=== PATIENT | female | born 1990 | race American Indian/Alaskan Native ===

== ENCOUNTER 2017-04-06 16:28 | Outpatient (CLI) | payer MEDICAID ==
[2017-04-06] MEDS ORDERED: LACTATED RINGERS 500 ML IV ONE (16:38)
[2017-04-06] MEDS ORDERED: LACTATED RINGERS 1,000 ML IV SCH (17:00)
[2017-04-06 17:05] VITALS: BP 118/64
[2017-04-06 17:13] LABS: Bilirubin,Urine NEG (Negative); Blood,Urine NEG (Negative); Ketones,Urine NEG (Negative); Leukocyte Esterase,Urine NEG (Negative); Mucus,Urine FEW /HPF; Nitrite,Urine NEG (Negative); Protein,Urine <15 mg/dL mg/dL (Negative); Urobilinogen,Urine < 2.0 mg/dL (<2.0)
[2017-04-06] MEDS ORDERED: IMODIUM PO PRN (17:30)
== END 2017-04-06 17:35 | disposition home or self-care (01) ==
LOC: TRG 16:28
PROVIDERS: ATTEND Obstetrics & Gynecology
DX: O47.02 False labor before 37 completed weeks of gestation, second trimester (principal); Z3A.25 25 weeks gestation of pregnancy
CPT/HCPCS: 59025; 81001

== ENCOUNTER 2017-06-05 12:57 | Outpatient (CLI) | payer MEDICAID ==
[2017-06-05] MEDS ORDERED: LACTATED RINGERS 500 ML IV ONE (13:19)
[2017-06-05 13:31] VITALS: BP 118/68
[2017-06-05 14:49] LABS: Basophils % (Auto) 0.4 % (0.0-1.8); Eosinophils % (Auto) 0.9 % (0.0-4.3); Hematocrit 30.6 % (30.3-42.9); Hemoglobin 10.3 gm/dl (10.1-14.3); Mean Corpuscular HGB Conc 34 % (30-34); Mean Corpuscular Hemoglobin 28 pg (28-32); Mean Corpuscular Volume 83 fl (79-97); Platelet Count 264 K/mm3 (140-440); Red Blood Count 3.69 M/mm3 (3.65-5.03); Red Cell Distribution Width 15.7 % (13.2-15.2); White Blood Count 8.1 K/mm3 (4.5-11.0)
[2017-06-05 15:06] LABS: Alanine Aminotransferase 8 units/L (7-56); Albumin 3.4 g/dL (3.9-5); Albumin/Globulin Ratio 1.1 %; Alkaline Phosphatase 94 units/L (35-129); Anion Gap 21 mmol/L; BUN/Creatinine Ratio 15; Blood Urea Nitrogen 6 mg/dL (7-17); Carbon Dioxide 19 mmol/L (22-30); Chloride 96.8 mmol/L (98-107); Glucose 133 mg/dL (65-100); Potassium 3.5 mmol/L (3.6-5.0); Sodium 133 mmol/L (137-145); Total Protein 6.4 g/dL (6.3-8.2)
[2017-06-05] MEDS ORDERED: LACTATED RINGERS 1,000 ML ONE (15:49)
[2017-06-05 17:30] LABS: Bilirubin,Urine NEG (Negative); Blood,Urine NEG (Negative); Ketones,Urine 80 mg/dL (Negative); Leukocyte Esterase,Urine NEG (Negative); Mucus,Urine 3+ /HPF; Nitrite,Urine NEG (Negative)
== END 2017-06-05 17:50 | disposition home or self-care (01) ==
LOC: TRG 12:57
PROVIDERS: ATTEND Obstetrics & Gynecology
DX: Z34.93 Encounter for supervision of normal pregnancy, unspecified, third trimester (principal); Z3A.34 34 weeks gestation of pregnancy; Z79.899 Other long term (current) drug therapy
CPT/HCPCS: 36415; 59025; 80053; 81001; 82962; 83036; 85025; 96360; 96361; J7120

== ENCOUNTER 2017-07-04 08:23 | Inpatient (IN) | payer MEDICAID ==
--- NOTE | 2017-07-04 10:12 | History and Physical Report ---
History of Present Illness Date of examination: 07/04/17 Date of admission: 07/04/17 08:23 Chief complaint: induction of labor @ 38+4 weeks for GDM History of present illness: EDC Calculations by LMP: 07/14/2017 Past History : 3 Term Births: 2 Living Children: 2 Para: 2 # 1 Delivery date: 2006 Weeks Gestation: 42 labor: no Delivery type: Anesthesia type: epidural Delivery location: [place] Sex: Male weight: 8#2 Comments: no complications # 2 Delivery date: 2007 Weeks Gestation: 42 labor: no Delivery type: Anesthesia type: epidural Delivery location: [place] Sex: Male weight: 8#10 Past Medical History: Abnormal Pap Smear "all of them have had abnormal cells" - last pap 2014 Past Surgical History: right ankle Past Medical History Surgery (Non-brand planner): right ankle Abnormal PAP: positive Family Hx: Aunt - ovarian cancer Social Hx: single no etoh/drugs/smoking Infection History Hx of STD: HPV HIV Risk Eval: no Hepatitis B Risk Eval: low risk Personal hx. of genital herpes: no Partner hx. of genital herpes: no Rash, Viral, or Febrile illness since last LMP? no Genetic History Congenital Heart Defect: Mom: no Dad: no Shefali Disease: Mom: no Dad: no Thalassemia Mom: no Dad: no Neural Tube Defect Mom: no Dad: no Down's Syndrome Mom: no Dad: no Lg-Sachs Mom: no Dad: no Sickle Cell Disease/Trait Mom: no Dad: no Hemophilia Mom: no Dad: no Muscular Dystrophy Mom: no Dad: no Cystic Fibrosis Mom: no Dad: no [place] Chorea Mom: no Dad: no Mental Retardation Mom: no Dad: no Fragile X Mom: no Dad: no Other Genetic/Chromosomal Disorder Mom: no Dad: no Child w/other defect Mom: no Dad: no Enviromental Exposures Xray Exposure: no Medication, drug, or alcohol use since LMP: no Chemical/Other Exposure: no Exposure to Cat Liter: no Hx of Parvovirus (Fifth Disease): no Occupational Exposure to Children: none Active Medications (reviewed today): None Current Allergies (reviewed today): No known allergies Past History Past Medical History: other (see HPI) Past Surgical History: other (see HPI) - Obstetrical History Expected Date of Delivery: 07/14/17 Actual Gestation: 38 Week(s) 4 Day(s) : 3 Para: 2 Hx # Term Pregnancies: 2 Number of Pregnancies: 0 Spontaneous Abortions: 0 Induced : 0 Number of Living Children: 2 Medications and Allergies Allergies Allergy/AdvReac Type Severity Reaction Status Date / Time No Known Allergies Allergy Unverified 04/06/17 16:38 Home Medications Medication Instructions Recorded Confirmed Last Taken Type Vit No.129/Iron/Folic 1 each PO DAILY 06/05/17 06/05/17 3 Days Ago History [ Tablet] ~06/02/17 Active Meds: Active Medications Ephedrine Sulfate (Ephedrine Sulfate) 10 mg IV Q2M PRN PRN Reason: Hypotension Fentanyl (Sublimaze) 100 mcg IV Q2H PRN PRN Reason: Labor Pain Ampicillin Sodium (Polycillin/Ns 2 Gm/100 Ml) 2 gm in 100 mls @ 100 mls/hr IV ONCE ONE PRN Reason: Protocol Stop: 07/04/17 11:03 Ampicillin Sodium (Polycillin/Ns 1 Gm/50 Ml) 1 gm in 50 mls @ 100 mls/hr IV Q4HR DHIRAJ PRN Reason: Protocol Lactated Ringer's (Lactated Ringers) 1,000 mls @ 125 mls/hr IV DIRECT DHIRAJ Oxytocin/Sodium Chloride (Pitocin/Ns 20 Unit/1000ml Drip) 20 units in 1,000 mls @ 125 mls/hr IV DIRECT DHIRAJ Oxytocin/Sodium Chloride (Pitocin/Ns 30 Unit/500ml) 30 units in 500 mls @ 4 mls /hr IV TITR DHIRAJ PRN Reason: Protocol Lidocaine (Xylocaine 2%) 20 ml INFILTRATI ONCE ONE Stop: 07/04/17 10:05 Mineral Oil (Mineral Oil) 30 ml PO QHS PRN PRN Reason: Constipation Ondansetron HCl (Zofran) 4 mg IV Q8H PRN PRN Reason: Nausea And Vomiting Terbutaline Sulfate (Brethine) 0.25 mg SUB-Q ONCE PRN PRN Reason: Hyperstimulation/Hypertonicity Review of Systems All systems: negative - Vital Signs Vital signs: Vital Signs Temp Pulse Resp BP 98.2 F 100 H 18 118/71 07/04/17 08:54 07/04/17 08:54 07/04/17 08:54 07/04/17 08:54 Temp Pulse Resp BP Pulse Ox 98.2 F 100 H 18 118/71 07/04/17 08:54 07/04/17 08:57 07/04/17 08:54 07/04/17 08:57 - Physical Exam Breasts: Positive: normal Cardiovascular: Regular rate Lungs: Positive: Clear to auscultation, Normal air movement Abdomen: Positive: normal appearance, soft Genitourinary (Female): Positive: normal external genitalia, normal perenium Vulva: both: normal Vagina: Positive: normal moisture Uterus: Positive: normal size, normal contour Anus/Rectum: Positive: normal perianal skin Extremities: Positive: normal Deep Tendon Reflex Grade: Normal +2 - Obstetrical FHR: category 1 Uterine Contraction Monitor Mode: External Cervical Dilatation: 3.5 (vertex, IBOW) Cervical Effacement Percentage: 70 station: -1 Uterine Contraction Frequency (min): 1.5-3 Uterine Contraction Duration: 60 Uterine Contraction Pattern: Regular Uterine Tone Measurement Phase: Contraction Uterine Contraction Intensity: Moderate Results Result Diagrams: 07/04/17 09:00 All other labs normal. Assessment and Plan Admission to L&D for IOL @ 38+4 for GDM on metformin. Admission orders in EMR. Patient doing well, breathing through ctx. SVE changed from 1 to 3.5 cms since admission. Patient encouraged to get epidural. Anticipate . - Patient Problems (1) 38 weeks gestation of Current Visit: Yes Status: Acute (2) GBS (group B Streptococcus carrier), +RV culture, currently Current Visit: Yes Status: Acute Plan to address problem: Ampicillin q 4h until delivery, second dose due @ 1500 (3) GDM (gestational diabetes mellitus) Current Visit: Yes Status: Acute Qualifiers: Gestational diabetes mellitus control: oral hypoglycemic-controlled Trimester: third trimester Qualified Code(s): O24.415 - Gestational diabetes mellitus in , controlled by oral hypoglycemic drugs Plan to address problem: accuchecks q2h while in labor monitor s/s hypoglycemia
[2017-07-04 10:15] LABS: Hematocrit 29.2 % (30.3-42.9); Hemoglobin 9.6 gm/dl (10.1-14.3); Mean Corpuscular HGB Conc 33 % (30-34); Mean Corpuscular Hemoglobin 27 pg (28-32); Mean Corpuscular Volume 81 fl (79-97); Platelet Count 267 K/mm3 (140-440); Red Cell Distribution Width 15.9 % (13.2-15.2); White Blood Count 8.7 K/mm3 (4.5-11.0)
[2017-07-04] MEDS ORDERED: ePHEDrine SULFATE IV PRN ×2 (10:30→14:39)
[2017-07-04] MEDS ORDERED: SUBLIMAZE IV PRN (10:30)
[2017-07-04] MEDS ORDERED: ZOFRAN IV PRN ×2 (10:30→22:20)
[2017-07-04] MEDS: LACTATED RINGERS 1,000 ML IV SCH ×2 (10:44→13:21)
[2017-07-04] MEDS ORDERED: BRETHINE SUB-Q PRN (11:00)
[2017-07-04] MEDS ORDERED: XYLOCAINE 2% INFILTRATI ONE (11:00)
[2017-07-04] MEDS ORDERED: PITOCin/NS 20 UNIT/1000ML DRIP 20 UNITS/1,000 ML BAG IV SCH ×2 (11:00→23:00)
[2017-07-04] MEDS ORDERED: MINERAL OIL PO PRN (11:00)
[2017-07-04] MEDS ORDERED: POLYCILLIN/NS 2 GM/100 ML 2 GM/100 ML BAG IV ONE (11:00)
[2017-07-04] MEDS ORDERED: PITOCin/NS 30 UNIT/500ML 30 UNITS/500 ML BAG IV SCH (11:00)
[2017-07-04] MEDS ORDERED: XYLOCAINE MPF 2% ONE (14:20)
[2017-07-04] MEDS ORDERED: NARCAN 2 MG/2 ML IV PRN (14:39)
[2017-07-04] MEDS ORDERED: fentaNYL-BUPIV 2 MCG/ML-0.125% 200 MCG/100 ML BAG EPIDURAL SCH (15:00)
[2017-07-04] MEDS: POLYCILLIN/NS 1 GM/50 ML 1 GM/50 ML BAG IV SCH ×2 (15:10→19:51)
--- NOTE | 2017-07-04 15:19 | Event Note ---
Date: 07/04/17 AROm slightly blood tinged fluid no change in cervix/IUPC & FSE placed/continue ppitocin
--- NOTE | 2017-07-04 16:52 | Progress Note ---
Assessment and Plan Small amount of cervical change noted since last exam by same provider, clear/ blood fluid noted. IUPC and ISE functioning well. Pitocin was at 20mU w/ tachystole - fht lost variability and increased baseline to 170 w/ late decels. RN decreased pitocin to 10mU and is now going back up as tolerated by FHT. - Patient Problems (1) 38 weeks gestation of Current Visit: Yes Status: Acute (2) GBS (group B Streptococcus carrier), +RV culture, currently Current Visit: Yes Status: Acute Plan to address problem: Third dose of Ampicillin due @ 1900 Afebrile (3) GDM (gestational diabetes mellitus) Current Visit: Yes Status: Acute Qualifiers: Gestational diabetes mellitus control: oral hypoglycemic-controlled Trimester: third trimester Qualified Code(s): O24.415 - Gestational diabetes mellitus in , controlled by oral hypoglycemic drugs Plan to address problem: Blood sugars within NL Subjective - Subjective Date of service: 07/04/17 Principal diagnosis: IUP @ 38+4, GDM Interval history: EDC Calculations by LMP: 07/14/2017 Past History : 3 Term Births: 2 Living Children: 2 Para: 2 # 1 Delivery date: 2005 Weeks Gestation: 42 labor: no Delivery type: Anesthesia type: epidural Delivery location: [place] Sex: Male weight: 8#2 Comments: no complications # 2 Delivery date: 2007 Weeks Gestation: 42 labor: no Delivery type: Anesthesia type: epidural Delivery location: [place] Sex: Male weight: 8#10 Past Medical History: Abnormal Pap Smear "all of them have had abnormal cells" - last pap 2014 Past Surgical History: right ankle Past Medical History 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 of genital herpes: no Partner hx. of genital herpes: no Rash, Viral, or Febrile illness since last LMP? no Genetic History Congenital Heart Defect: Mom: no Dad: no Shefali Disease: Mom: no Dad: no Thalassemia Mom: no Dad: no Neural Tube Defect Mom: no Dad: no Down's Syndrome Mom: no Dad: no Lg-Sachs Mom: no Dad: no Sickle Cell Disease/Trait Mom: no Dad: no Hemophilia Mom: no Dad: no Muscular Dystrophy Mom: no Dad: no Cystic Fibrosis Mom: no Dad: no [place] Chorea Mom: no Dad: no Mental Retardation Mom: no Dad: no Fragile X Mom: no Dad: no Other Genetic/Chromosomal Disorder Mom: no Dad: no Child w/other defect Mom: no Dad: no Enviromental Exposures Xray Exposure: no Medication, drug, or alcohol use since LMP: no Chemical/Other Exposure: no Exposure to Cat Liter: no Hx of Parvovirus (Fifth Disease): no Occupational Exposure to Children: none Active Medications (reviewed today): None Current Allergies (reviewed today): No known allergies Patient reports: loss of fluid, movement normal, contractions Objective - Vital Signs Vital Signs: Vital Signs - 12hr 07/04/17 07/04/17 07/04/17 08:54 08:57 13:19 Temperature 98.2 F 98.2 F Pulse Rate 100 H 100 H Respiratory 18 18 Rate Blood Pressure 118/71 Blood Pressure 118/71 [Right] O2 Sat by Pulse Oximetry 07/04/17 07/04/17 07/04/17 13:55 13:56 13:58 Temperature Pulse Rate 94 H 96 H 90 Respiratory Rate Blood Pressure 146/66 134/66 135/66 Blood Pressure [Right] O2 Sat by Pulse 99 Oximetry 07/04/17 07/04/17 07/04/17 14:00 14:02 14:04 Temperature Pulse Rate 95 H 91 H 90 Respiratory Rate Blood Pressure 122/70 114/66 112/62 Blood Pressure [Right] O2 Sat by Pulse 99 Oximetry 07/04/17 07/04/17 07/04/17 14:05 14:06 14:08 Temperature Pulse Rate 102 H 106 H Respiratory Rate Blood Pressure 110/58 119/67 Blood Pressure [Right] O2 Sat by Pulse 99 Oximetry 07/04/17 07/04/17 07/04/17 14:09 14:10 14:12 Temperature Pulse Rate 88 105 H 97 H Respiratory Rate Blood Pressure 116/57 123/68 Blood Pressure [Right] O2 Sat by Pulse 89 Oximetry 07/04/17 07/04/17 07/04/17 14:14 14:16 14:18 Temperature Pulse Rate 100 H 93 H 100 H Respiratory Rate Blood Pressure 125/60 125/60 116/54 Blood Pressure [Right] O2 Sat by Pulse 98 Oximetry 07/04/17 07/04/17 07/04/17 14:19 14:20 14:22 Temperature Pulse Rate 107 H 100 H 95 H Respiratory Rate Blood Pressure 104/51 123/59 Blood Pressure [Right] O2 Sat by Pulse 99 Oximetry 07/04/17 07/04/17 07/04/17 14:24 14:26 14:28 Temperature Pulse Rate 99 H 94 H 92 H Respiratory Rate Blood Pressure 108/55 106/53 104/51 Blood Pressure [Right] O2 Sat by Pulse 97 Oximetry 07/04/17 07/04/17 07/04/17 14:31 14:32 14:34 Temperature Pulse Rate 97 H 85 90 Respiratory Rate Blood Pressure 113/69 116/59 105/51 Blood Pressure [Right] O2 Sat by Pulse Oximetry 07/04/17 07/04/17 07/04/17 14:37 14:50 14:53 Temperature 98.1 F Pulse Rate 93 H 89 Respiratory 16 Rate Blood Pressure 113/56 102/50 Blood Pressure [Right] O2 Sat by Pulse Oximetry 07/04/17 07/04/17 07/04/17 14:54 14:59 15:04 Temperature Pulse Rate 105 H 86 97 H Respiratory Rate Blood Pressure Blood Pressure [Right] O2 Sat by Pulse 98 98 97 Oximetry 07/04/17 07/04/17 07/04/17 15:08 15:09 15:14 Temperature Pulse Rate 85 86 94 H Respiratory Rate Blood Pressure 105/52 Blood Pressure [Right] O2 Sat by Pulse 98 98 Oximetry 07/04/17 07/04/17 07/04/17 15:19 15:23 15:24 Temperature Pulse Rate 87 81 81 Respiratory Rate Blood Pressure 133/60 Blood Pressure [Right] O2 Sat by Pulse 99 98 Oximetry 07/04/17 07/04/17 07/04/17 15:29 15:34 15:37 Temperature Pulse Rate 85 86 86 Respiratory Rate Blood Pressure 121/68 Blood Pressure [Right] O2 Sat by Pulse 98 98 Oximetry 07/04/17 07/04/17 07/04/17 15:39 15:44 15:49 Temperature Pulse Rate 92 H 90 88 Respiratory Rate Blood Pressure Blood Pressure [Right] O2 Sat by Pulse 97 97 97 Oximetry 07/04/17 07/04/17 07/04/17 15:52 15:54 15:59 Temperature Pulse Rate 88 85 89 Respiratory Rate Blood Pressure 110/55 Blood Pressure [Right] O2 Sat by Pulse 97 97 Oximetry 07/04/17 07/04/17 07/04/17 16:04 16:08 16:09 Temperature Pulse Rate 86 86 93 H Respiratory Rate Blood Pressure 130/65 Blood Pressure [Right] O2 Sat by Pulse 97 98 Oximetry 07/04/17 07/04/17 07/04/17 16:14 16:19 16:23 Temperature Pulse Rate 83 97 H 94 H Respiratory Rate Blood Pressure 105/54 Blood Pressure [Right] O2 Sat by Pulse 98 99 Oximetry 07/04/17 07/04/17 07/04/17 16:24 16:29 16:34 Temperature Pulse Rate 95 H 86 92 H Respiratory Rate Blood Pressure Blood Pressure [Right] O2 Sat by Pulse 98 97 99 Oximetry 07/04/17 07/04/17 07/04/17 16:38 16:39 16:44 Temperature Pulse Rate 90 93 H 91 H Respiratory Rate Blood Pressure 115/55 Blood Pressure [Right] O2 Sat by Pulse 99 100 Oximetry 07/04/17 16:49 Temperature Pulse Rate 93 H Respiratory Rate Blood Pressure Blood Pressure [Right] O2 Sat by Pulse 98 Oximetry - Exam Breasts: normal Cardiovascular: Regular rate Lungs: Clear to auscultation, Normal air movement Abdomen: Present: normal appearance, soft Vulva: both: normal Uterus: Present: normal FHR: category 2 Uterine Contraction Monitor Mode: Internal Cervical Dilatation: 4.5 Cervical Effacement Percentage: 70 station: -1 Uterine Contraction Frequency (min): 1.5-3 Uterine Contraction Pattern: Regular Uterine Tone Measurement Phase: Contraction Uterine Contraction Intensity: Moderate Uterine Tone Measurement (Intensity): 180 (MVU's 180) Extremities: normal Deep Tendon Reflex Grade: Normal +2 - Labs Labs: Abnormal Labs 07/04/17 09:00 RBC 3.60 L Hgb 9.6 L Hct 29.2 L MCH 27 L RDW 15.9 H Laboratory Results - last 24 hr 07/04/17 07/04/17 07/04/17 09:00 09:00 09:00 WBC 8.7 RBC 3.60 L Hgb 9.6 L Hct 29.2 L MCV 81 MCH 27 L MCHC 33 RDW 15.9 H Plt Count 267 POC Glucose RPR Nonreactive Blood Type O POSITIVE Antibody Screen Negative 07/04/17 07/04/17 07/04/17 09:31 12:58 16:09 WBC RBC Hgb Hct MCV MCH MCHC RDW Plt Count POC Glucose 83 71 75 RPR Blood Type Antibody Screen
[2017-07-04] MEDS ORDERED: METHERGINE IM ONE ×2 (21:48→21:53)
[2017-07-04] MEDS ORDERED: TUCKS PAD TP PRN (22:20)
[2017-07-04] MEDS ORDERED: LANSINOH TP PRN (22:20)
[2017-07-04] MEDS ORDERED: MILK OF MAGNESIA PO PRN (22:20)
[2017-07-04] MEDS ORDERED: BENADRYL PO PRN (22:20)
[2017-07-04] MEDS ORDERED: PHENERGAN PO PRN (22:20)
[2017-07-04] MEDS ORDERED: DULCOLAX PR PRN (22:20)
[2017-07-04] MEDS ORDERED: TYLENOL PO PRN (22:20)
--- NOTE | 2017-07-04 22:32 | Procedure Note ---
OB Delivery Note - Delivery Date of Delivery: 07/04/17 Surgeon: SUSAN NELSON Estimated blood loss: 200cc - Vaginal Delivery presentation: vertex Delivery position: OA Intrapartum events: none Delivery induction: oxytocin Delivery augmentation: pitocin Delivery monitor: external uterine Route of delivery: Delivery placenta: spontaneous Delivery cord: 3 umbilical vessels Episiotomy: none Delivery laceration: 1st degree Delivery repair: vicryl Anesthesia: epidural Delivery comments: Patient became fully dilated. She delivered via a live female infant from and ZACK position with Apgars of 9 at 1 min and 9 at 5 mins at 9:42 pM. Bulb suction of the mouth and nose, cord clamped and cut, cord blood collected. The placenta was delivered spontaneously and it was complete with a 3-vessel cord. A first degree perineal laceration was sustained which was repaired with 3 vicryl suture. There was uterine atony. IV pitocin and IM methregine were given. EBL was 250 cc. Peds were notified. patient remained stable.
[2017-07-04] MEDS ORDERED: SODIUM CHLORIDE FLUSH SYRINGE 10 ML IV NR (23:00)
[2017-07-05] MEDS ORDERED: MOTRIN PO SCH
[2017-07-05] MEDS ORDERED: MILK OF MAGNESIA PO PRN (00:58)
[2017-07-05] MEDS ORDERED: TUCKS PAD TP PRN (00:58)
[2017-07-05] MEDS ORDERED: BENADRYL PO PRN (00:58)
[2017-07-05] MEDS ORDERED: PHENERGAN PO PRN (00:58)
[2017-07-05] MEDS ORDERED: DULCOLAX PR PRN (00:58)
[2017-07-05] MEDS ORDERED: TYLENOL PO PRN (00:58)
[2017-07-05] MEDS ORDERED: SODIUM CHLORIDE FLUSH SYRINGE 10 ML IV NR (00:58)
[2017-07-05] MEDS: MOTRIN PO SCH ×3 (05:48→18:25)
[2017-07-05] MEDS: NORCO 5/325 PO PRN (08:03)
[2017-07-05 10:45] LABS: Hematocrit 25.5 % (30.3-42.9); Hemoglobin 8.5 gm/dl (10.1-14.3)
--- NOTE | 2017-07-05 10:59 | Progress Note ---
Assessment and Plan Patient doing well w/o complaints. Lochia scant, well, VSSAF, H& H 8.5/25.5 (pre-existing anemia, asymptomatic). Patient desires d/c home first thing tomorrow morning, will put discharge in chart for tomorrow. Plans for POPs for contraception, f/u in office 4-6 weeks. - Patient Problems (1) GBS (group B Streptococcus carrier), +RV culture, currently Current Visit: No Status: Acute Plan to address problem: treated adequately prior to delivery (2) (normal spontaneous vaginal delivery) Current Visit: Yes Status: Acute (3) Anemia Current Visit: Yes Status: Acute Qualifiers: Anemia type: iron deficiency Plan to address problem: pre-existing anemia asymptomatic Will give rx FE to continue after discharge Subjective - Subjective Date of service: 07/05/17 Principal diagnosis: day #1 s/p , GDM Interval history: EDC Calculations by LMP: 07/14/2017 Past History : 3 Term Births: 2 Living Children: 2 Para: 2 # 1 Delivery date: 2005 Weeks Gestation: 42 labor: no Delivery type: Anesthesia type: epidural Delivery location: [place] Inf[place] Sex: Male weight: 8#2 Comments: no complications # 2 Delivery date: 2007 Weeks Gestation: 42 labor: no Delivery type: Anesthesia type: epidural Delivery location: [place] Infant Sex: Male weight: 8#10 Past Medical History: Abnormal Pap Smear "all of them have had abnormal cells" - last pap 2014 Past Surgical History: right ankle Past Medical History Surgery (Non-piece hand): right ankle Abnormal PAP: positive Family Hx: Aunt - ovarian cancer Social Hx: single no etoh/drugs/smoking Infection History Hx of STD: HPV HIV Risk Eval: no Hepatitis B Risk Eval: low risk Personal hx. of genital herpes: no Partner hx. of genital herpes: no Rash, Viral, or Febrile illness since last LMP? no Genetic History Congenital Heart Defect: Mom: no Dad: no Shefali Disease: Mom: no Dad: no Thalassemia Mom: no Dad: no Neural Tube Defect Mom: no Dad: no Down's Syndrome Mom: no Dad: no Lg-Sachs Mom: no Dad: no Sickle Cell Disease/Trait Mom: no Dad: no Hemophilia Mom: no Dad: no Muscular Dystrophy Mom: no Dad: no Cystic Fibrosis Mom: no Dad: no [place] Chorea Mom: no Dad: no Mental Retardation Mom: no Dad: no Fragile X Mom: no Dad: no Other Genetic/Chromosomal Disorder Mom: no Dad: no Child w/other defect Mom: no Dad: no Enviromental Exposures Xray Exposure: no Medication, drug, or alcohol use since LMP: no Chemical/Other Exposure: no Exposure to Cat Liter: no Hx of Parvovirus (Fifth Disease): no Occupational Exposure to Children: none Active Medications (reviewed today): None Current Allergies (reviewed today): No known allergies Patient reports: appetite normal, voiding normally, pain well controlled, ambulating normally, no dizzy ambulation, no nauseated : doing well, nursing well Objective - Vital Signs Latest vital signs: Vital Signs Temp Pulse Resp BP BP Pulse Ox 07/05/17 08:06 97.9 F 81 18 122/71 07/05/17 08:03 20 07/05/17 06:48 18 07/05/17 06:12 98.0 F 83 18 108/70 97 07/05/17 05:48 18 07/05/17 01:30 98.6 F 86 18 140/82 07/05/17 00:22 89 133/82 07/05/17 00:07 90 120/83 07/04/17 23:52 90 133/85 07/04/17 23:37 90 124/82 07/04/17 23:22 88 129/85 07/04/17 23:07 90 125/83 07/04/17 22:52 92 H 121/77 07/04/17 22:37 93 H 125/78 07/04/17 22:07 92 H 142/73 07/04/17 22:04 94 H 98 07/04/17 21:59 95 H 98 07/04/17 21:54 93 H 98 07/04/17 21:52 94 H 153/77 07/04/17 21:49 97 H 100 07/04/17 21:44 120 H 97 07/04/17 21:39 99 H 99 07/04/17 21:38 101 H 157/74 07/04/17 21:34 93 H 97 07/04/17 21:29 102 H 99 07/04/17 21:24 93 H 98 12/15/17 21:23 91 H 138/76 12/15/17 21:19 96 H 98 12/15/17 21:14 98 H 98 12/15/17 21:09 96 H 130/76 98 12/15/17 21:04 95 H 98 12/15/17 20:59 92 H 98 12/15/17 20:54 95 H 98 12/15/17 20:53 95 H 143/77 12/15/17 20:49 95 H 98 12/15/17 20:44 92 H 98 12/15/17 20:39 95 H 119/57 98 12/15/17 20:34 94 H 98 12/15/17 20:29 104 H 99 12/15/17 20:24 96 H 131/75 98 12/15/17 20:19 93 H 97 12/15/17 20:14 96 H 97 12/15/17 20:09 98 H 97 12/15/17 20:08 88 116/64 1215/17 20:04 90 97 1215/17 19:59 86 97 15/17 19:54 85 97 12/15/17 19:52 83 106/58 12/15/17 19:49 88 98 12/15/17 19:44 84 98 12/15/17 19:39 83 109/62 98 12/15/17 19:34 85 97 12/15/17 19:29 86 98 12/15/17 19:24 86 97 12/15/17 19:23 86 118/59 1215/17 19:19 88 98 15/17 19:14 82 97 15/17 19:09 85 97 1215/17 19:07 81 129/61 12/15/17 19:04 83 99 12/15/17 18:59 84 99 12/15/17 18:54 81 129/61 100 12/15/17 18:49 81 99 12/15/17 18:44 81 99 12/15/17 18:39 82 99 12/15/17 18:37 80 127/65 12/15/17 18:34 90 99 12/15/17 18:29 81 99 12/15/17 18:24 83 99 1215/17 18:22 81 127/60 1215/17 18:19 85 99 12/15/17 18:14 83 98 12/15/17 18:09 84 98 12/15/17 18:07 80 135/65 12/15/17 18:04 85 99 12/15/17 17:59 94 H 98 12/15/17 17:54 85 97 12/15/17 17:53 82 130/69 12/15/17 17:49 86 97 12/15/17 17:44 85 97 12/15/17 17:39 88 97 12/15/17 17:37 87 101/50 12/15/17 17:34 83 97 12/15/17 17:29 87 98 12/15/17 17:24 85 100 12/15/17 17:23 82 126/61 12/15/17 17:19 86 100 12/15/17 17:14 88 100 12/15/17 17:09 86 100 12/15/17 17:08 90 118/64 12/15/17 17:04 86 100 12/15/17 16:59 88 100 12/15/17 16:54 88 98 12/15/17 16:52 88 120/58 12/15/17 16:49 93 H 98 12/15/17 16:44 91 H 100 12/15/17 16:39 93 H 99 12/15/17 16:38 90 115/55 12/15/17 16:35 16 12/15/17 16:34 92 H 99 12/15/17 16:29 86 97 12/15/17 16:24 95 H 98 12/15/17 16:23 94 H 105/54 12/15/17 16:19 97 H 99 12/15/17 16:14 83 98 12/15/17 16:09 93 H 98 12/15/17 16:08 86 130/65 12/15/17 16:04 86 97 12/15/17 15:59 89 97 12/15/17 15:54 85 97 12/15/17 15:52 88 110/55 12/15/17 15:49 88 97 12/15/17 15:44 90 97 12/15/17 15:39 92 H 97 12/15/17 15:37 86 121/68 12/15/17 15:34 86 98 12/15/17 15:29 85 98 12/15/17 15:24 81 98 12/15/17 15:23 81 133/60 07/04/17 15:19 87 99 07/04/17 15:14 94 H 98 07/04/17 15:09 86 98 07/04/17 15:08 85 105/52 07/04/17 15:04 97 H 97 07/04/17 14:59 86 98 07/04/17 14:54 105 H 98 07/04/17 14:53 89 102/50 07/04/17 14:50 98.1 F 16 07/04/17 14:37 93 H 113/56 07/04/17 14:34 90 105/51 07/04/17 14:32 85 116/59 07/04/17 14:31 97 H 113/69 07/04/17 14:28 92 H 104/51 07/04/17 14:26 94 H 106/53 07/04/17 14:24 99 H 108/55 97 07/04/17 14:22 95 H 123/59 07/04/17 14:20 100 H 104/51 07/04/17 14:19 107 H 99 07/04/17 14:18 100 H 116/54 07/04/17 14:16 93 H 125/60 07/04/17 14:14 100 H 125/60 98 07/04/17 14:12 97 H 123/68 07/04/17 14:10 105 H 116/57 07/04/17 14:09 88 89 07/04/17 14:08 106 H 119/67 07/04/17 14:06 110/58 07/04/17 14:05 102 H 99 07/04/17 14:04 90 112/62 07/04/17 14:02 91 H 114/66 07/04/17 14:00 95 H 122/70 99 07/04/17 13:58 90 135/66 07/04/17 13:56 96 H 134/66 07/04/17 13:55 94 H 146/66 99 07/04/17 13:19 98.2 F 18 Intake and Output 07/04/17 07/05/17 07/05/17 23:59 07:59 15:59 Intake Total 22.733 360 120 Output Total 250 550 Balance -227.267 -190 120 Intake: IV 22.733 PITOCin/NS 30 UNIT/500ML 22.733 30 units In 500 ml @ 4 mls/hr IV TITR DHIRAJ Rx#: [id number] Oral 120 Intake, Free Water 360 Output: Urine 250 550 Void 250 550 Other: Total, Intake Amount 120 Total, Output Amount 250 150 # Voids Void 1 Estimated Blood Loss 250 - Exam Breasts: Present: normal, Cardiovascular: Present: Regular rate Lungs: Present: Clear to auscultation, Normal air movement Abdomen: Present: normal appearance, soft, normal bowel sounds Vulva: both: laceration/episiotomy Uterus: Present: normal, firm, fundal height at umbilicus Extremities: Present: normal Incision: Present: normal, dry, intact - Labs Labs: Abnormal lab results 07/05/17 07/05/17 Range/Units 06:23 10:16 Hgb 8.5 L (10.1-14.3) gm/dl Hct 25.5 L (30.3-42.9) % POC Glucose 52 L (70-105)
--- NOTE | 2017-07-05 11:00 | Discharge Summary ---
Providers - Providers Date of Admission: 07/04/17 08:23 Date of discharge: 07/06/17 (desires early discharge) Attending physician: PETER ALAS 07/05/17 00:58 Consult to Handkerchief Maker [CONS] Routine Reason For Exam: assistance with , SNS Primary care physician: PETER ALAS Hospitalization Reason for admission: induction of labor (GDM) Delivery: Episiotomy: none Laceration: 1st degree Incision: normal, dry, intact Other procedures: none complications: none Discharge diagnosis: IUP at term delivered baby: female Hospital course: uncomplicated vaginal , anemia Condition at discharge: Good Disposition: DC-01 TO HOME OR SELFCARE - Discharge Diagnoses (1) GBS (group B Streptococcus carrier), +RV culture, currently Status: Acute (2) (normal spontaneous vaginal delivery) Status: Acute (3) Anemia Status: Acute Qualifiers: Anemia type: iron deficiency Plan - Discharge Medications Prescriptions: Ferrous Sulfate [Feosol 325 MG tab] 325 mg PO BID #90 tablet Ibuprofen [Motrin 800 MG tab] 800 mg PO Q8HR PRN #30 tablet PRN Reason: Pain - Provider Discharge Summary Activity: routine, no sex for 6 weeks, no heavy lifting 4 weeks, no strenuous exercise Diet: routine Instructions: routine Additional instructions: [] Smoking cessation referral if applicable(refer to patient education folder for contact #) [] Refer to [facility]'s [facility] Booklet Call your doctor immediately for: * Fever > 100.5 * Heavy vaginal bleeding ( >1 pad per hour) * Severe persistent headache * Shortness of breath * Reddened, hot, painful area to leg or breast * Drainage or odor from incision. * Keep incision clean and dry at all times and follow doctor's instructions regarding bathing/showering - Follow up plan Follow up: PETER ALAS MD [Primary Care Provider] - 6 Weeks (Congratulations!! Please call [phone] to schedule your visit in the office in 4-6 weeks. Call for any questions or concerns. )
[2017-07-05] MEDS: PRENATAL VITAMIN PO SCH (13:51)
[2017-07-05] MEDS: COLACE PO SCH ×2 (13:51→22:15)
[2017-07-06] MEDS: NORCO 5/325 PO PRN (07:54)
[2017-07-06 09:20] VITALS: BP 122/55
[2017-07-06] MEDS: MOTRIN PO SCH ×2 (12:15)
[2017-07-06] MEDS: COLACE PO SCH (12:49)
[2017-07-06] MEDS: PRENATAL VITAMIN PO SCH (12:49)
== END 2017-07-06 16:00 | disposition home or self-care (01) | DRG 775 ==
LOC: LD 08:23 → OB 07-05 00:57
PROVIDERS: ADMIT Obstetrics & Gynecology; ATTEND Obstetrics & Gynecology
PROC: 0HQ9XZZ Repair Perineum Skin, External Approach (ICD-10-PCS; principal; 2017-07-04)
PROC: 10E0XZZ Delivery of Products of Conception, External Approach (ICD-10-PCS; 2017-07-04)
PROC: 3E0R3BZ Introduction of Anesthetic Agent into Spinal Canal, Percutaneous Approach (ICD-10-PCS; 2017-07-04)
PROC: 00HU33Z Insertion of Infusion Device into Spinal Canal, Percutaneous Approach (ICD-10-PCS; 2017-07-04)
PROC: 3E033VJ Introduction of Other Hormone into Peripheral Vein, Percutaneous Approach (ICD-10-PCS; 2017-07-04)
DX: O99.824 Streptococcus B carrier state complicating childbirth (principal); O99.02 Anemia complicating childbirth; D64.9 Anemia, unspecified; O70.0 First degree perineal laceration during delivery; Z37.0 Single live birth; Z3A.38 38 weeks gestation of pregnancy; O24.425 Gestational diabetes mellitus in childbirth, controlled by oral hypoglycemic drugs; O76 Abnormality in fetal heart rate and rhythm complicating labor and delivery
CPT/HCPCS: 36415; 82962; 85014; 85018; 85027; 86592; 86850; 86900; 86901; J0290; J2210; J2405; J2590; J7120

== ENCOUNTER 2018-04-30 23:04 | Outpatient (CLI) | payer OTHER ==
[2018-04-30] MEDS ORDERED: LACTATED RINGERS 500 ML IV ONE (23:55)
[2018-05-01 00:34] LABS: Bilirubin,Urine NEG (Negative); Blood,Urine NEG (Negative); Color,Urine Yellow (Yellow); Mucus,Urine 1+ /HPF; Protein,Urine <15 mg/dL mg/dL (Negative)
[2018-05-01 00:56] VITALS: BP 119/74
== END 2018-05-01 01:09 | disposition home or self-care (01) ==
LOC: TRG 23:04
PROVIDERS: ATTEND Obstetrics & Gynecology
DX: O26.892 Other specified pregnancy related conditions, second trimester (principal); O24.419 Gestational diabetes mellitus in pregnancy, unspecified control; R10.9 Unspecified abdominal pain; R51 Headache; Z3A.20 20 weeks gestation of pregnancy
CPT/HCPCS: 81001; 96360; J7120

== ENCOUNTER 2018-07-17 12:12 | Inpatient (IN) | payer MEDICAID ==
[2018-07-17] MEDS ORDERED: BRETHINE IVP PRN (12:27)
[2018-07-17] MEDS ORDERED: SUBLIMAZE IV PRN (12:27)
[2018-07-17] MEDS ORDERED: MINERAL OIL PO PRN (12:27)
[2018-07-17] MEDS ORDERED: XYLOCAINE 2% INFILTRATI ONE (12:27)
[2018-07-17] MEDS ORDERED: BRETHINE SUB-Q PRN (12:27)
--- NOTE | 2018-07-17 12:33 | History and Physical Report ---
History of Present Illness Date of examination: 07/17/18 Date of admission: 07/17/18 12:12 Chief complaint: Contractions History of present illness: 28yo G 4 P 2 1 0 3 at 40 weeks 3 days here with c/o contractions that started this morning and worsening. She reports +FMs but denies VB or LOF. She is a [facility] patient who initiated care at 34 weeks. Her course was complicated by insufficient PNC and anemia (on iron therapy). She has a h/o GDM with her last . Labs: O+, Antibody Screen neg, H/H/Plt 29.8/9.7/362, RI, RPR NR, Urine Culture/Screen neg, HBsAg neg, HIV neg, Diabetes Screen 133, GBS unknown Past History Past Medical History: diabetes (h/o GDM) Past Surgical History: no surgical history Family/Genetic History: none Social history: lives with family, full code, other (legally ). denies: smoking, alcohol abuse, prescription drug abuse, IV drug use - Obstetrical History Expected Date of Delivery: 07/14/18 Actual Gestation: 40 Week(s) 3 Day(s) : 4 Para: 3 Hx # Term Pregnancies: 2 Number of Pregnancies: 1 Spontaneous Abortions: 0 Induced : 0 Number of Living Children: 3 #1 Gender: Male year: 2,[birth year] (04/21/2009) Birthweight: 3.657 kg (8lbs 1oz) Method of Delivery: Vaginal Gestational age at delivery: 42 Complications: none #2 Infant Gender: Male year: 2,006 (03/21/2007) Birthweight: 3.77 kg (8lbs 5oz) Method of Delivery: Vaginal Gestational age at delivery: 42 Complications: none #3 Gender: Female year: 2,017 (06/22/2018) Birthweight: 3.572 kg Method of Delivery: Vaginal Gestational age at delivery: 35 () Complications: other (Gestational Diabetes) Medications and Allergies Allergies Allergy/AdvReac Type Severity Reaction Status Date / Time No Known Allergies Allergy Verified 06/29/18 14:02 Home Medications Medication Instructions Recorded Confirmed Last Taken Type No Known Home Medications [No 04/30/18 04/30/18 Unknown History Reported Home Medications] Active Meds: Active Medications Ephedrine Sulfate (Ephedrine Sulfate) 10 mg IV Q2M PRN PRN Reason: Hypotension Fentanyl (Sublimaze) 100 mcg IV Q2H PRN PRN Reason: Labor Pain Lactated Ringer's (Lactated Ringers) 1,000 mls @ 125 mls/hr IV DIRECT DHIRAJ Lidocaine (Xylocaine 2%) 20 ml INFILTRATI ONCE ONE Stop: 07/17/18 12:28 Review of Systems All systems: negative - Obstetrical FHR: auscultation normal, category 1 FHR comments: baseline 130, moderate variability, 15x15 accels, no decels Cervical Dilatation: 9 (per RN) Cervical Effacement Percentage: 100 (per RN) station: -2 (per RN) Uterine Contraction Pattern: Regular Results Result Diagrams: 07/17/18 12:40 All other labs normal. Assessment and Plan - Patient Problems (1) 40 weeks gestation of Current Visit: Yes Status: Acute (2) Active labor at term Current Visit: Yes Status: Acute Plan to address problem: Admit to L&D with routine labor orders Start ampicillin for GBS prophylaxis (GBS unknown) Anticipate imminent vaginal delivery
[2018-07-17] MEDS ORDERED: NARCAN 2 MG/2 ML IV PRN (12:49)
[2018-07-17] MEDS ORDERED: fentaNYL-BUPIV 2 MCG/ML-0.125% 200 MCG/100 ML BAG EPIDURAL SCH (13:00)
[2018-07-17] MEDS ORDERED: PITOCin/NS 20 UNIT/1000ML DRIP 20 UNITS/1,000 ML BAG IV SCH (13:00)
[2018-07-17] MEDS ORDERED: POLYCILLIN/NS 2 GM/100 ML 2 GM/100 ML BAG IV ONE (13:00)
[2018-07-17] MEDS ORDERED: LACTATED RINGERS 1,000 ML IV SCH (13:00)
[2018-07-17 13:06] LABS: Hematocrit 31.1 % (30.3-42.9); Hemoglobin 10.1 gm/dl (10.1-14.3); Mean Corpuscular HGB Conc 32 % (30-34); Mean Corpuscular Hemoglobin 25 pg (28-32); Mean Corpuscular Volume 76 fl (79-97); Platelet Count 331 K/mm3 (140-440); Red Blood Count 4.09 M/mm3 (3.65-5.03)
--- NOTE | 2018-07-17 14:18 | Procedure Note ---
OB Delivery Note - Delivery Date of Delivery: 07/17/18 (13:52) Surgeon: MARTHA BOWLES (SEBASTIANM) Estimated blood loss: 100cc - Vaginal Delivery presentation: vertex Delivery position: OA Intrapartum events: precipitous labor- <3hr Delivery induction: none Delivery monitor: external FHT, external uterine Route of delivery: (13:52) Delivery placenta: spontaneous (13:59) Episiotomy: none Delivery laceration: none Anesthesia: intravenous, epidural Delivery comments: of a vigorous term 7 lbs 13 oz on 07/17/18 @ 13:52. Cord blood collected. Spontaneous delivery of placenta, Jennifer-side presenting at 13:59. Small lochia present. Fundal massage and IV Pitocin bolus initiated. Fundus F/ML/U.b Placenta intact; was discarded. Perineum intact. Mom and baby in stable condition. - A at 1 minute: 8 at 5 minutes: 9 Gender: Male (7 lbs 13 oz (3548g); 19 in)
[2018-07-17] MEDS ORDERED: PHENERGAN PR PRN (14:20)
[2018-07-17] MEDS ORDERED: BENADRYL PO PRN (14:20)
[2018-07-17] MEDS ORDERED: LANSINOH TP PRN (14:20)
[2018-07-17] MEDS ORDERED: NORCO 5/325 PO PRN (14:20)
[2018-07-17] MEDS ORDERED: PHENERGAN PO PRN (14:20)
[2018-07-17] MEDS ORDERED: TYLENOL PO PRN (14:20)
[2018-07-17] MEDS ORDERED: ZOFRAN IV PRN (14:20)
[2018-07-17] MEDS ORDERED: TUCKS PAD TP PRN (14:20)
[2018-07-17] MEDS ORDERED: DULCOLAX PR PRN (14:20)
[2018-07-17] MEDS ORDERED: SODIUM CHLORIDE FLUSH SYRINGE 10 ML IV NR (15:00)
[2018-07-17] MEDS: MOTRIN PO SCH (18:19)
[2018-07-17 20:12] LABS: Amphetamine Screen,Urine PRESUMPTIVE NEGATIVE; Benzodiazepines Screen,Urine PRESUMPTIVE NEGATIVE; Cannabinoid Screen,Urine PRESUMPTIVE NEGATIVE; Cocaine Screen,Urine PRESUMPTIVE NEGATIVE; Methadone Screen,Urine PRESUMPTIVE NEGATIVE; Opiate Screen,Urine PRESUMPTIVE NEGATIVE
[2018-07-17] MEDS ORDERED: MILK OF MAGNESIA PO PRN (22:00)
[2018-07-18] MEDS: MOTRIN PO SCH ×3 (00:22→22:25)
[2018-07-18 02:25] LABS: Hemoglobin 8.6 gm/dl (10.1-14.3)
[2018-07-18] MEDS: PRENATAL VITAMIN PO SCH (16:14)
[2018-07-18] MEDS: FEOSOL PO SCH ×2 (16:16→22:25)
[2018-07-18] MEDS ORDERED: FEOSOL PO ONE (16:20)
--- NOTE | 2018-07-18 18:42 | Progress Note ---
Assessment and Plan A: PPD#1 s/p precipitous P: H&H ordered. Anticipate discharge tomorrow. CHIQUI Craig/Hilaria Cesar CNM Subjective - Subjective Date of service: 07/18/18 Principal diagnosis: PPD #2 s/p Interval history: PPD#1 s/p precipitous Patient is doing well. Patient is breast and bottle feeding. Patient denies dizziness, shortness of breath, cough, headache, heavy vaginal bleeding. Patient is voiding and ambulating without difficulty,moderate lochia. Patient reports: appetite normal, voiding normally, pain well controlled, ambulating normally, no dizzy ambulation : doing well, bottle feeding (breast feeding) Objective - Vital Signs Latest vital signs: Vital Signs Temp Pulse Resp BP 07/18/18 15:41 97.3 F L 78 18 127/69 07/18/18 12:20 98.0 F 94 H 18 134/67 07/18/18 07:25 98.1 F 88 18 118/66 07/18/18 04:15 98.4 F 63 16 117/71 07/18/18 00:00 98.7 F 68 16 118/67 07/17/18 20:30 98.6 F 74 16 120/78 Intake and Output 07/18/18 07/18/18 07/18/18 07:59 15:59 23:59 Intake Total 540 480 Output Total 450 Balance 90 480 Intake: Oral 240 480 Intake, Free Water 300 Output: Urine 450 Void 450 Other: Total, Intake Amount 240 240 Total, Output Amount 450 # Voids Void 1 - Exam Cardiovascular: Present: Regular rate, Normal S1, Normal S2 Lungs: Present: Clear to auscultation, Normal air movement Abdomen: Present: normal appearance, soft, normal bowel sounds. Absent: distention, tenderness, guarding Vulva: both: normal Uterus: Present: normal, firm, fundal height below umbilicus Extremities: Present: normal - Labs Labs: Abnormal lab results 07/18/18 Range/Units 02:16 Hgb 8.6 L (10.1-14.3) gm/dl Hct 27.0 L (30.3-42.9) %
[2018-07-19] MEDS: MOTRIN PO SCH ×2 (05:28→12:33)
[2018-07-19 06:00] LABS: Hemoglobin 8.9 gm/dl (10.1-14.3)
[2018-07-19] MEDS: FEOSOL PO SCH (09:25)
[2018-07-19] MEDS: PRENATAL VITAMIN PO SCH (09:25)
--- NOTE | 2018-07-19 13:40 | Progress Note ---
Assessment and Plan A: PPD#2 s/p precipitous P: Discharge patient to home discharge instructions and warning signs discussed with patient Advised patient to continue taking iron supplement twice a day and vitamins once per day. Advised patient to avoid intercouse, heavy lifting, tub baths, and driving. Advised patient to follow up in 6 weeks with OB clinic for exam. CHIQUI Craig/Hilaria Cesar CNM Subjective - Subjective Date of service: 07/19/18 Principal diagnosis: PPD #2 s/p Interval history: PPD#2 s/p precipitous Patient is doing well. Patient is breast and bottle feeding. Patient denies dizziness, shortness of breath, cough, headache, heavy vaginal bleeding. Patient is voiding and ambulating without difficulty,moderate lochia. Patient reports: appetite normal, voiding normally, pain well controlled, ambulating normally, no dizzy ambulation [place]: doing well Objective - Vital Signs Latest vital signs: Vital Signs Temp Pulse Resp BP BP 07/19/18 12:33 18 07/19/18 08:15 98.3 F 78 18 132/79 07/19/18 00:30 98.7 F 72 18 102/78 07/18/18 15:41 97.3 F L 78 18 127/69 Intake and Output 07/18/18 07/19/18 07/19/18 23:59 07:59 15:59 Intake Total 300 200 Balance 300 200 Intake: Oral 200 Intake, Free Water 300 Other: Total, Intake Amount 200 - Exam Cardiovascular: Present: Regular rate, Normal S1, Normal S2 Lungs: Present: Clear to auscultation, Normal air movement Abdomen: Present: normal appearance, soft, normal bowel sounds. Absent: distention, tenderness, guarding Uterus: Present: normal, fundal height below umbilicus Extremities: Present: normal. Absent: tenderness, edema - Labs Labs: Abnormal lab results 07/19/18 Range/Units 05:53 Hgb 8.9 L (10.1-14.3) gm/dl Hct 28.0 L (30.3-42.9) %
--- NOTE | 2018-07-19 13:42 | Discharge Summary ---
Providers - Providers Date of Admission: 07/17/18 12:12 Date of discharge: 07/19/18 Attending physician: NINA PIZARRO NONE Primary care physician: NINA PIZARRO Hospitalization Reason for admission: active labor Delivery: Episiotomy: none Laceration: none Other procedures: none complications: none Discharge diagnosis: IUP at term delivered [place] baby: male Pertinent studies: LABS Hospital course: NORMAL Condition at discharge: Good Disposition: DC-01 TO HOME OR SELFCARE - Discharge Diagnoses (1) Term delivered Status: Acute Plan - Provider Discharge Summary Activity: routine, no sex for 6 weeks, no heavy lifting 4 weeks, no strenuous exercise Diet: routine Instructions: routine Additional instructions: Call your doctor immediately for: * Fever > 100.5 * Heavy vaginal bleeding ( >1 pad per hour) * Severe persistent headache * Shortness of breath * Reddened, hot, painful area to leg or breast - Follow up plan Follow up: NINA PIZARRO MD [Primary Care Provider] - 6 Weeks
[2018-07-19 20:38] VITALS: BP 131/82
== END 2018-07-19 16:35 | disposition home or self-care (01) | DRG 775 ==
LOC: LD 12:12 → OB 16:14
PROVIDERS: ADMIT Obstetrics & Gynecology; ATTEND Obstetrics & Gynecology
PROC: 10E0XZZ Delivery of Products of Conception, External Approach (ICD-10-PCS; principal; 2018-07-17)
PROC: 3E0R3BZ Introduction of Anesthetic Agent into Spinal Canal, Percutaneous Approach (ICD-10-PCS; 2018-07-17)
DX: O62.3 Precipitate labor (principal); Z37.0 Single live birth; Z3A.40 40 weeks gestation of pregnancy; Z86.32 Personal history of gestational diabetes
CPT/HCPCS: 36415; 80307; 85014; 85018; 85027; 86592; 86850; 86900; 86901; G0378; J0290; J2590; J3010; J7120